=== PATIENT | female | born 1990 | race American Indian/Alaskan Native ===

== ENCOUNTER 2021-06-08 22:07 | Emergency (ER) | payer SELFPAY ==
[2021-06-08 22:52] VITALS: BP 133/78
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
[2021-06-08] MEDS ORDERED: ACETAMINOPHEN 500 MG TAB PO ONE (23:45)
[2021-06-08] MEDS ORDERED: IBUPROFEN 600 MG TAB PO ONE (23:50)
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
== END 2021-06-09 02:32 | disposition home or self-care (01) ==
LOC: ED 22:07
DX: S63.592A Other specified sprain of left wrist, initial encounter (principal); S20.219A Contusion of unspecified front wall of thorax, initial encounter; V89.2XXA Person injured in unspecified motor-vehicle accident, traffic, initial encounter; Y93.89 Activity, other specified; Y92.488 Other paved roadways as the place of occurrence of the external cause; Y99.8 Other external cause status
CPT/HCPCS: 71046; 99283